=== PATIENT | female | born 1970 | race Two or more races ===

== ENCOUNTER 2020-06-06 21:54 | Inpatient (IN) | payer MEDICAID, OTHER ==
[~2020-06-06] VITALS: Ht 157.5 cm; Wt 67.1 kg
[~2020-06-06 21:54] MED LIST: none reported
[2020-06-06 23:33] LABS: BASOPHILS % 0.3 % (0.0-2.0); HEMATOCRIT. 38.4 % (36.0-48.0); MEAN CORPUSCULAR HEMOGLOBIN 29.3 pg (28.0-32.0); MEAN CORPUSCULAR VOLUME 86.8 fL (81.0-99.0); MEAN PLATELET VOLUME 8.5 fl (7.4-10.4); MONOCYTES % 9.9 % (2.0-8.0); NEUTROPHILS % 74.8 % (40.0-76.0); PLATELET 281 x1000/uL (130-400); RED BLOOD CELL COUNT 4.43 mill/uL (4.2-5.4); RED CELL DISTRIBUTION WIDTH 12.9 % (11.6-14.6)
[2020-06-06 23:42] LABS: CHLORIDE 102 mEq/L (98-107); PROTHROMBIN TIME 10.6 sec (9.6-11.0)
[2020-06-07 00:15] LABS: CLARITY URINE CLEAR (CLEAR); COLOR URINE YELLOW (YELLOW); KETONES URINE TRACE (NEGATIVE); LEUKOCYTE ESTERASE URINE 1+ (NEGATIVE); NITRITE URINE NEGATIVE (NEGATIVE); OCCULT BLOOD URINE 1+ (NEGATIVE); PROTEIN URINE 2+ (NEGATIVE); SPECIFIC GRAVITY URINE 1.021 (1.005-1.030)
[2020-06-07] MEDS ORDERED: AZITHROMYCIN 500 MG in DEXT 5% WATER 250 ML IV SCH (01:30)
[2020-06-07] MEDS ORDERED: CEFTRIAXONE 1 G PREMIX 50 ML IV ONE (01:30)
[2020-06-07] MEDS ORDERED: POTASSIUM CHLORIDE 20MEQ TABLET SR PO ONE (02:00)
[2020-06-07] MEDS ORDERED: ALBUTEROL 6.7GM HFA INHALER ORI PRN (11:45)
[2020-06-07] MEDS ORDERED: CEFTRIAXONE 1 G PREMIX 50 ML IV SCH (11:45)
[2020-06-07] MEDS ORDERED: ONDANSETRON HCL 4MG/2ML INJ IV PRN (11:45)
[2020-06-07 11:57] VITALS: BP 106/64
[2020-06-07] MEDS ORDERED: AZIT500T8 PO (12:43)
[2020-06-07] MEDS ORDERED: PROM25VI PO (12:43)
[2020-06-07] MEDS ORDERED: ALBU18HF2 IH (12:45)
[2020-06-07 14:00] VITALS: BP 106/69
[2020-06-07] MEDS: ENOXAPARIN 40MG/0.4ML SYR SUBCUT SCH (17:58)
[2020-06-07 18:11] VITALS: BP 118/79
[2020-06-07 20:00] VITALS: BP 110/74
[2020-06-07] MEDS: ACETAMINOPHEN 325MG TABLET PO PRN (22:11)
[2020-06-08] VITALS (7 sets, daily range): BP systolic 106–130; BP diastolic 62–76
[2020-06-08] MEDS: CEFTRIAXONE 1,000 MG in DEXTROSE 5% WATER 50 ML IV SCH (05:27)
[2020-06-08 07:39] LABS: BASOPHILS % 0.3 % (0.0-2.0); EOSINOPHILS % 0.7 % (0.0-5.0); HEMATOCRIT. 38.4 % (36.0-48.0); HEMOGLOBIN. 12.7 g/dL (12.0-16.0); LYMPHOCYTES % 12.2 % (20.0-50.0); MEAN CORPUSCULAR VOLUME 87.5 fL (81.0-99.0); MEAN PLATELET VOLUME 8.4 fl (7.4-10.4); MONOCYTES % 5.3 % (2.0-8.0); NEUTROPHILS % 81.5 % (40.0-76.0); PLATELET 303 x1000/uL (130-400); RED BLOOD CELL COUNT 4.39 mill/uL (4.2-5.4); RED CELL DISTRIBUTION WIDTH 13.3 % (11.6-14.6)
[2020-06-08 07:46] LABS: CHLORIDE 105 mEq/L (98-107)
[2020-06-08] MEDS: AZITHROMYCIN 250 MG TABLET PO SCH (08:36)
[2020-06-08] MEDS: ACETAMINOPHEN 325MG TABLET PO PRN ×2 (09:54→20:23)
[2020-06-08] MEDS: ENOXAPARIN 40MG/0.4ML SYR SUBCUT SCH (17:56)
[2020-06-09] VITALS: BP 108/65
[2020-06-09 04:00] VITALS: BP 119/68
[2020-06-09] MEDS: ACETAMINOPHEN 325MG TABLET PO PRN ×2 (04:33→12:28)
[2020-06-09] MEDS: CEFTRIAXONE 1,000 MG in DEXTROSE 5% WATER 50 ML IV SCH (05:13)
[2020-06-09 08:00] VITALS: BP 100/64
[2020-06-09] MEDS: DEXAMETHASONE 6MG TABLET PO SCH (10:02)
[2020-06-09] MEDS: AZITHROMYCIN 250 MG TABLET PO SCH (10:02)
[2020-06-09 12:00] VITALS: BP 118/70
[2020-06-09 16:00] VITALS: BP 110/65
[2020-06-09] MEDS: ENOXAPARIN 40MG/0.4ML SYR SUBCUT SCH (18:43)
[2020-06-09 20:00] VITALS: BP 122/84
[2020-06-10] VITALS: BP 118/85
[2020-06-10] MEDS: ACETAMINOPHEN 325MG TABLET PO PRN (00:21)
[2020-06-10 04:00] VITALS: BP 117/69
[2020-06-10] MEDS: CEFTRIAXONE 1,000 MG in DEXTROSE 5% WATER 50 ML IV SCH (05:30)
[2020-06-10 06:25] LABS: HEMATOCRIT. 36.7 % (36.0-48.0); HEMOGLOBIN. 12.5 g/dL (12.0-16.0); MEAN CORPUSCULAR HEMOGLOBIN 29.7 pg (28.0-32.0); MEAN CORPUSCULAR VOLUME 87.1 fL (81.0-99.0); MEAN PLATELET VOLUME 8.5 fl (7.4-10.4); PLATELET 393 x1000/uL (130-400); RED BLOOD CELL COUNT 4.21 mill/uL (4.2-5.4); RED CELL DISTRIBUTION WIDTH 13.1 % (11.6-14.6)
[2020-06-10 06:36] LABS: CHLORIDE 104 mEq/L (98-107)
[2020-06-10] MEDS: AZITHROMYCIN 250 MG TABLET PO SCH (09:49)
[2020-06-10] MEDS: DEXAMETHASONE 6MG TABLET PO SCH (09:49)
[2020-06-10 13:14] VITALS: BP 111/73
[2020-06-10 16:00] VITALS: BP 114/72
[2020-06-10] MEDS: ENOXAPARIN 40MG/0.4ML SYR SUBCUT SCH (17:14)
[2020-06-10 20:00] VITALS: BP 108/80
[2020-06-10] MEDS ORDERED: IVERMECTIN 3 MG TABLET PO SCH (21:00)
[2020-06-10 22:12] LABS: PLATELET ESTIMATE NORMAL
[2020-06-11] VITALS: BP 119/69
[2020-06-11 04:00] VITALS: BP 123/75
[2020-06-11] MEDS: CEFTRIAXONE 1,000 MG in DEXTROSE 5% WATER 50 ML IV SCH (05:00)
[2020-06-11 06:12] LABS: CHLORIDE 104 mEq/L (98-107)
[2020-06-11 06:18] LABS: BASOPHILS % 0.1 % (0.0-2.0); HEMATOCRIT. 38.3 % (36.0-48.0); HEMOGLOBIN. 12.8 g/dL (12.0-16.0); LYMPHOCYTES % 7.2 % (20.0-50.0); MEAN CORPUSCULAR HEMOGLOBIN 29.4 pg (28.0-32.0); MEAN CORPUSCULAR VOLUME 87.6 fL (81.0-99.0); MEAN PLATELET VOLUME 8.8 fl (7.4-10.4); MONOCYTES % 7.2 % (2.0-8.0); NEUTROPHILS % 85.5 % (40.0-76.0); PLATELET 454 x1000/uL (130-400); RED BLOOD CELL COUNT 4.37 mill/uL (4.2-5.4); RED CELL DISTRIBUTION WIDTH 12.9 % (11.6-14.6)
[2020-06-11 08:00] VITALS: BP_SYST 119; BP_SYST 123; BP_DIAS 72; BP_DIAS 77
[2020-06-11] MEDS: DEXAMETHASONE 6MG TABLET PO SCH (09:16)
[2020-06-11] MEDS: AZITHROMYCIN 250 MG TABLET PO SCH (09:16)
[2020-06-11 12:00] VITALS: BP 123/83
[2020-06-11 16:00] VITALS: BP 130/79
[2020-06-11] MEDS: ENOXAPARIN 40MG/0.4ML SYR SUBCUT SCH (18:52)
[2020-06-11 20:00] VITALS: BP 112/81
[2020-06-11] MEDS: BENZONATATE 100MG CAPSULE PO SCH (22:00)
[2020-06-12 00:46] VITALS: BP 124/75
[2020-06-12] MEDS: GUAIFENESIN-DM 200MG-20MG/10ML UDC PO PRN ×2 (03:21→17:18)
[2020-06-12 04:00] VITALS: BP 115/82
[2020-06-12] MEDS ORDERED: *PATIENT'S OWN MEDICATION STORAGE XX SCH (04:00)
[2020-06-12] MEDS: CEFTRIAXONE 1,000 MG in DEXTROSE 5% WATER 50 ML IV SCH (05:12)
[2020-06-12] MEDS: BENZONATATE 100MG CAPSULE PO SCH ×3 (05:12→20:35)
[2020-06-12 08:00] VITALS: BP 113/87
[2020-06-12] MEDS: DEXAMETHASONE 6MG TABLET PO SCH (09:35)
[2020-06-12 12:00] VITALS: BP 111/71
[2020-06-12] MEDS: ENOXAPARIN 40MG/0.4ML SYR SUBCUT SCH (17:11)
[2020-06-12 20:00] VITALS: BP 116/81
[2020-06-12] MEDS ORDERED: IVERMECTIN 3 MG TABLET PO SCH (21:00)
[2020-06-13] VITALS: BP 113/59
[2020-06-13 04:00] VITALS: BP 122/74
[2020-06-13] MEDS: BENZONATATE 100MG CAPSULE PO SCH ×3 (05:39→20:44)
[2020-06-13] MEDS: CEFTRIAXONE 1,000 MG in DEXTROSE 5% WATER 50 ML IV SCH (05:39)
[2020-06-13 08:00] VITALS: BP 114/74
[2020-06-13] MEDS: DEXAMETHASONE 6MG TABLET PO SCH (09:07)
[2020-06-13 12:58] VITALS: BP 125/71
[2020-06-13 16:00] VITALS: BP 135/70
[2020-06-13] MEDS: ENOXAPARIN 40MG/0.4ML SYR SUBCUT SCH (16:55)
[2020-06-13 20:00] VITALS: BP 134/87
[2020-06-14] VITALS: BP 140/70
[2020-06-14 04:00] VITALS: BP 116/58
[2020-06-14] MEDS: BENZONATATE 100MG CAPSULE PO SCH ×3 (05:41→21:38)
[2020-06-14] MEDS: ACETAMINOPHEN 325MG TABLET PO PRN (09:30)
[2020-06-14] MEDS: DEXAMETHASONE 6MG TABLET PO SCH (09:30)
[2020-06-14 12:00] VITALS: BP 156/72
[2020-06-14 14:08] LABS: BG BASE EXCESS 5.7 mmol/L (-2.0-2.0); BG CARBOXYHEMOGLOBIN 0.5 % (0.5-1.5); BG DEOXYHEMOGLOBIN 10.6 % (0.0-5.0); BG HCO3 ACT 28.6 mmol/L (22.0-26.0); BG METHEMOGLOBIN 0.2 % (0.0-1.5); BG OXYGEN SATURATION 89.3 % (92.0-98.5); BG OXYHEMOGLOBIN 88.7 % (94.0-97.0); BG PCO2 35.7 mmHg (35.0-45.0); BG PH 7.521 (7.350-7.450); BG PO2 53.2 mmHg (75.0-100.0); BG SAMPLE SITE RIGHT RADIAL; BG TOTAL HEMOGLOBIN 14.4 g/dL (12.0-18.0); BG VENT MODE ROOM AIR
[2020-06-14] MEDS: ENOXAPARIN 40MG/0.4ML SYR SUBCUT SCH (17:13)
[2020-06-14 20:00] VITALS: BP 115/73
[2020-06-15] VITALS (7 sets, daily range): BP systolic 102–116; BP diastolic 56–86
[2020-06-15] MEDS: DEXAMETHASONE 6MG TABLET PO SCH (09:32)
[2020-06-15] MEDS: ENOXAPARIN 40MG/0.4ML SYR SUBCUT SCH (16:50)
[2020-06-15] MEDS ORDERED: ALBU18HF2 IH (18:53)
[2020-06-15] MEDS ORDERED: DEX6 PO (18:53)
== END 2020-06-15 19:45 | disposition home or self-care (01) | DRG 720 ==
LOC: ER 22:34 → 8WST 06-07 03:27 → ENRESERV 06-07 09:09 → 7WST 06-10 11:01
PROVIDERS: ADMIT Internal Medicine; ATTEND Internal Medicine
DX: A41.89 Other specified sepsis (principal); U07.1 COVID-19; J12.82 Pneumonia due to coronavirus disease 2019; E44.0 Moderate protein-calorie malnutrition; E87.6 Hypokalemia; F31.9 Bipolar disorder, unspecified; F84.0 Autistic disorder; J96.00 Acute respiratory failure, unspecified whether with hypoxia or hypercapnia; Z68.27 Body mass index [BMI] 27.0-27.9, adult
CPT/HCPCS: 36415; 71045; 80048; 80053; 81003; 82728; 83605; 83615; 84145; 85025; 85379; 86140; 87426; 93005; J0456; J0696; J1650; J7040; J7060; U0003